=== PATIENT | female | born 1970 | race Caucasian/White ===

== ENCOUNTER → 2020-12-05 | Outpatient (CLI) | payer OTHER ==
--- NOTE | 2020-12-05 10:45 | RAD ---
EXAM: Chest, 2 views. HISTORY: Premedication screening. COMPARISON: None. FINDINGS: 2 views of the chest are obtained. There is no infiltrate, pleural effusion or pneumothorax . The heart is normal in size. IMPRESSION: No acute pulmonary finding. Electronically signed by: Genie Parsons MD (12/05/2020 10:42 AM) [id number]
== END ==
LOC: RAD 10:23
PROVIDERS: ATTEND Nurse Practitioner
DX: L40.0 Psoriasis vulgaris (principal)
CPT/HCPCS: 71046